=== PATIENT | male | born 1950 | race Caucasian/White ===

== ENCOUNTER 2018-08-20 11:39 | Day surgery (SDC) | payer BC ==
[~2018-08-20] VITALS: Ht 182.9 cm; Wt 112.3 kg
[~2018-08-20 11:39] MED LIST: CEPH500; CHLO500 PO; ELIQUIS5 MG PO; ERGO50000 PO; HYDACE5 PO; HYDMOR2 PO; HYDROCODONE 7.5/325 PO; INDO25 PO; METF500 PO; NAPR500EC PO; NAPR500ERA PO; NEBI10 PO; Naprosyn500 MG PO; Norco 5-325 Ta1 EACH PO; OMEP20ER PO; OXYACE5T PO; OXYC5 PO; Omeprazole20 M1 PO; PRAV20 PO; RXHYDMOR2 PO; RXLORA1 PO; TAMS.4ER PO; VIT1CAPS12; VIT1CAPS12 PO
== END 2018-08-20 12:50 | disposition home or self-care (01) ==
LOC: ORSCSDS 11:39
PROVIDERS: Anesthesiology
PROC: 3E0R33Z Introduction of Anti-inflammatory into Spinal Canal, Percutaneous Approach (ICD-10-PCS; principal; 2018-08-20 13:00)
DX: M54.16 Radiculopathy, lumbar region (principal); I48.91 Unspecified atrial fibrillation; I10 Essential (primary) hypertension; K21.9 Gastro-esophageal reflux disease without esophagitis; E78.00 Pure hypercholesterolemia, unspecified; Z79.01 Long term (current) use of anticoagulants; Z79.899 Other long term (current) drug therapy
CPT/HCPCS: J1040

== ENCOUNTER 2019-04-28 09:40 | Day surgery (SDC) | payer BC ==
[~2019-04-28] VITALS: Ht 182.9 cm; Wt 108.2 kg
[~2019-04-28 09:40] MED LIST changes: +CEPH500 PO; +FURO20 PO; +VIT1CAPS12 BOTHEYES
[2019-04-28] MEDS ORDERED: METO25ER PO (10:21)
--- NOTE | 2019-04-28 10:26 | NUR ---
PT ARRIVED TO RECOVERY ROOM IN RECLINER. RIGHT RAIDAL TR BAND SITE WITH WRIST BOARD STABLE WITH NO HEMATOMA AND NO BLEEDING. PT SITTING UP DRINKING DR PEPPER AND EATING CRACKERS. PT'S IN ROOM AND CALL LIGHT IN REACH.
--- NOTE | 2019-04-28 10:29 | NUR ---
DR. ADAME IN ROOM TO SEE PT AND PT'S .
[2019-04-28] MEDS ORDERED: NITR.4SL SL (11:54)
--- NOTE | 2019-04-28 13:51 | NUR ---
11 CC OF AIR REMOVED FROM NOW DEFLATED RIGHT TR BAND OVER 15 MIN. NO HEMATOMA, NO PUSLATILE BLEEDING. DISCHARGE INSTRUCTIONS REVIEWED ALL QUESTIONS ANSWERED.
--- NOTE | 2019-04-28 14:34 | NUR ---
RIGHT RADIAL TR BAND REMOVED AND POLYMEM PLACED OVER RIGHT RADIAL SITE WITH WRIST BOARD IN PLACE; NO HEMATOMA, NO PULSATILE BLEEDING. PT AMBULATED TO BR TO VOID. 20 G IV REMOVED FROM LEFT AC WITH INTACT CANNULA. PT ESCORTED OUT VIA WHEELCHAIR ESCORT.
== END 2019-04-28 14:40 | disposition home or self-care (01) ==
LOC: MHTC 09:40
DX: I25.119 Atherosclerotic heart disease of native coronary artery with unspecified angina pectoris (principal); I10 Essential (primary) hypertension; I48.2 Chronic atrial fibrillation; E78.5 Hyperlipidemia, unspecified; I95.1 Orthostatic hypotension; Z88.6 Allergy status to analgesic agent
CPT/HCPCS: 93454; 99152; C1769; C1894; J1644; J2250; J3010; J7030; Q9967

== ENCOUNTER 2019-12-07 19:17 | Emergency (ER) | payer BC ==
[~2019-12-07] VITALS: Ht 172.7 cm; Wt 81.7 kg
[~2019-12-07 19:17] MED LIST changes: +METO25ER PO; +NITR.4SL SL
[2019-12-07] MEDS ORDERED: Paxil20 MG PO (19:26)
[2019-12-07] MEDS ORDERED: GABA300 PO (19:26)
[2019-12-07] MEDS ORDERED: ATOR80 PO (19:26)
[2019-12-07 19:44] LABS: BASOPHILS PERCENT AUTO 1 % (0-2); EOSINOPHILS ABSOLUTE AUTO 0.23 K/mm3 (0.00-0.68); EOSINOPHILS PERCENT AUTO 3 % (0-6); Hematocrit 37.2 % (37.0-53.0); Hemoglobin 12.8 g/dL (13.5-17.5); IMMATURE GRAN ABSOLUTE AUTO 0.02 K/mm3 (0.00-0.10); IMMATURE GRAN PERCENT AUTO 0 % (0-1); LYMPHOCYTES ABSOLUTE AUTO 3.01 K/mm3 (0.84-5.20); LYMPHOCYTES PERCENT AUTO 37 % (21-46); MONOCYTES PERCENT AUTO 10 % (4-13); Mean Corpuscular HGB 31.8 pg (26.0-34.0); Mean Corpuscular HGB Conc 34.4 g/dL (31.5-36.5); Mean Corpuscular Volume 92 fL (80-100); Mean Platelet Volume 10.1 fL (9.1-12.4); NEUTROPHILS ABSOLUTE AUTO 4.06 K/mm3 (1.96-9.15); NEUTROPHILS PERCENT AUTO 50 % (41-73); Platelet Count 217 K/mm3 (150-400); RDW Coefficient Variation 13.6 % (11.7-14.2); RDW Standard Deviation 46.1 fL (35.1-46.3); Red Blood Cell Count 4.03 M/mm3 (4.30-5.90); White Blood Cell Count 8.22 K/mm3 (4.00-11.30)
[2019-12-07 20:07] LABS: Alanine Aminotransfer (ALT/SGP 29 U/L (12-78); Albumin, Blood 3.7 g/dL (3.4-5.0); Albumin/Globulin Ratio 1.4 (0.8-1.8); Alk Phos 87 U/L (50-136); Anion Gap 9 mmol/L (6-16); Aspartate Aminotrans (AST/SGOT 16 U/L (12-37); Bilirubin, Total 0.5 mg/dL (0.1-1.0); Blood Urea Nitrogen 10 mg/dL (8-24); Bun/Creatinine Ratio 10.7 (12.0-20.0); CO2, Blood 23 mmol/L (21-32); Calcium, Blood 8.4 mg/dL (8.5-10.1); Chloride, Blood 109 mmol/L (98-108); Creatinine, Blood 0.94 mg/dL (0.60-1.20); Globulin, Blood 2.7 g/dL (2.2-4.0); Glomerular Filtration Rate >60 (60-); Glucose, Blood 92 mg/dL (70-99); Potassium, Blood 3.5 mmol/L (3.5-5.5); Sodium, Blood 141 mmol/L (136-145); Total Protein, Blood 6.4 g/dL (6.4-8.2); Troponin I <0.015 ng/mL (0.000-0.040)
== END 2019-12-07 22:35 | disposition home or self-care (01) ==
LOC: ER 19:17
PROVIDERS: Emergency Medicine
DX: R55 Syncope and collapse (principal); M25.561 Pain in right knee; M25.562 Pain in left knee; G89.29 Other chronic pain; I48.91 Unspecified atrial fibrillation; E78.5 Hyperlipidemia, unspecified; I48.20 Chronic atrial fibrillation, unspecified; E11.9 Type 2 diabetes mellitus without complications; I25.10 Atherosclerotic heart disease of native coronary artery without angina pectoris; Z88.8 Allergy status to other drugs, medicaments and biological substances; Z79.899 Other long term (current) drug therapy; Z79.01 Long term (current) use of anticoagulants
CPT/HCPCS: 70450; 71045; 80053; 83880; 84484; 85025; 93005; 93010; 99285-25

== ENCOUNTER 2020-02-21 19:39 | Emergency (ER) | payer OTHER, BC ==
[~2020-02-21] VITALS: Ht 172.7 cm; Wt 83.9 kg
[~2020-02-21 19:39] MED LIST changes: +ATOR80 PO; +GABA300 PO; +Paxil20 MG PO
[2020-02-21 19:53] LABS: BASOPHILS ABSOLUTE AUTO 0.09 K/mm3 (0.00-0.23); BASOPHILS PERCENT AUTO 1 % (0-2); EOSINOPHILS ABSOLUTE AUTO 0.11 K/mm3 (0.00-0.68); EOSINOPHILS PERCENT AUTO 2 % (0-6); Hematocrit 39.8 % (37.0-53.0); Hemoglobin 13.4 g/dL (13.5-17.5); IMMATURE GRAN ABSOLUTE AUTO 0.02 K/mm3 (0.00-0.10); IMMATURE GRAN PERCENT AUTO 0 % (0-1); LYMPHOCYTES PERCENT AUTO 39 % (21-46); MONOCYTES ABSOLUTE AUTO 0.69 K/mm3 (0.16-1.47); MONOCYTES PERCENT AUTO 10 % (4-13); Mean Corpuscular HGB 31.8 pg (26.0-34.0); Mean Corpuscular HGB Conc 33.7 g/dL (31.5-36.5); Mean Corpuscular Volume 95 fL (80-100); Mean Platelet Volume 10.2 fL (9.1-12.4); NEUTROPHILS PERCENT AUTO 48 % (41-73); Platelet Count 225 K/mm3 (150-400); RDW Coefficient Variation 13.5 % (11.7-14.2); RDW Standard Deviation 47.4 fL (35.1-46.3); Red Blood Cell Count 4.21 M/mm3 (4.30-5.90); White Blood Cell Count 6.91 K/mm3 (4.00-11.30)
[2020-02-21 20:21] LABS: Alanine Aminotransfer (ALT/SGP 30 U/L (12-78); Albumin, Blood 3.7 g/dL (3.4-5.0); Albumin/Globulin Ratio 1.3 (0.8-1.8); Alk Phos 86 U/L (50-136); Anion Gap 12 mmol/L (6-16); Aspartate Aminotrans (AST/SGOT 20 U/L (12-37); Bilirubin, Total 0.4 mg/dL (0.1-1.0); Blood Urea Nitrogen 13 mg/dL (8-24); Bun/Creatinine Ratio 13.8 (12.0-20.0); CO2, Blood 19 mmol/L (21-32); Calcium, Blood 8.7 mg/dL (8.5-10.1); Chloride, Blood 112 mmol/L (98-108); Creatinine, Blood 0.94 mg/dL (0.60-1.20); Globulin, Blood 2.9 g/dL (2.2-4.0); Glomerular Filtration Rate >60 (60-); Glucose, Blood 102 mg/dL (70-99); Magnesium, Blood 2.1 mg/dL (1.6-2.4); Potassium, Blood 4.1 mmol/L (3.5-5.5); Sodium, Blood 143 mmol/L (136-145); Total Protein, Blood 6.6 g/dL (6.4-8.2); Troponin I <0.015 ng/mL (0.000-0.040)
[2020-03-13] MEDS ORDERED: CODACE30 PO (22:16)
[2020-03-14] MEDS ORDERED: ATOR20 PO (15:54)
== END 2020-02-21 21:19 | disposition home or self-care (01) ==
LOC: ER 19:39
PROVIDERS: Emergency Medicine
DX: R55 Syncope and collapse (principal); I48.91 Unspecified atrial fibrillation; E86.0 Dehydration; Z88.8 Allergy status to other drugs, medicaments and biological substances; Z79.899 Other long term (current) drug therapy; M81.0 Age-related osteoporosis without current pathological fracture; M54.9 Dorsalgia, unspecified; G89.29 Other chronic pain; E78.5 Hyperlipidemia, unspecified
CPT/HCPCS: 71045; 80053; 83735; 83880; 84484; 85025; 93005; 93010; 99284-25

== ENCOUNTER 2020-06-28 18:29 | Emergency (ER) | payer BC ==
[~2020-06-28] VITALS: Ht 182.9 cm; Wt 112.5 kg
[~2020-06-28 18:29] MED LIST changes: +ATOR20 PO; +CODACE30 PO
== END 2020-06-28 19:36 | disposition left against medical advice (07) ==
LOC: ER 18:29
DX: Z53.21 Procedure and treatment not carried out due to patient leaving prior to being seen by health care provider (principal)
CPT/HCPCS: 36415; 93005; 93010

== ENCOUNTER 2021-11-07 18:42 | Emergency (ER) | payer OTHER, BC ==
[~2021-11-07] VITALS: Ht 182.9 cm; Wt 90.7 kg
[2021-11-07] MEDS ORDERED: Flomax0.4 MG PO (18:59)
[2021-11-07] MEDS ORDERED: DONEPEZIL HCL5 M2 PO (18:59)
[2021-11-07] MEDS ORDERED: SILVADENE20 GM TOP (19:12)
== END 2021-11-07 19:50 | disposition home or self-care (01) ==
LOC: ER 18:42
DX: T22.011A Burn of unspecified degree of right forearm, initial encounter (principal); I48.91 Unspecified atrial fibrillation; E78.5 Hyperlipidemia, unspecified; Z79.899 Other long term (current) drug therapy; X08.8XXA Exposure to other specified smoke, fire and flames, initial encounter
CPT/HCPCS: 16020; 99284-25; A9270

== ENCOUNTER → 2023-01-04 | Outpatient (CLI) | payer OTHER ==
[~2023-01-04] MED LIST changes: +DONEPEZIL HCL5 M2 PO; +Flomax0.4 MG PO; +SILVADENE20 GM TOP
[2023-01-04 15:28] LABS: PSA, %Free 6.2 %; PSA, Free 0.487 ng/mL
== END | disposition home or self-care (01) ==
LOC: LAB 13:14 → LAB SHORT 13:14
PROVIDERS: Urology
DX: R97.20 Elevated prostate specific antigen [PSA] (principal)
CPT/HCPCS: 36415; 84153; 84154

== ENCOUNTER 2023-07-22 11:59 | Inpatient (IN) | payer OTHER, MEDICARE, BC ==
[~2023-07-22] VITALS: Ht 182.9 cm; Wt 193.5 kg
[2023-07-22 13:30] LABS: BASOPHILS ABSOLUTE AUTO 0.04 K/mm3 (0.00-0.23); BASOPHILS PERCENT AUTO 0 % (0-2); EOSINOPHILS PERCENT AUTO 0 % (0-6); Hematocrit 36.9 % (37.0-53.0); Hemoglobin 12.8 g/dL (13.5-17.5); IMMATURE GRAN ABSOLUTE AUTO 0.16 K/mm3 (0.00-0.10); IMMATURE GRAN PERCENT AUTO 1 % (0-1); LYMPHOCYTES ABSOLUTE AUTO 0.79 K/mm3 (0.84-5.20); LYMPHOCYTES PERCENT AUTO 5 % (21-46); MONOCYTES ABSOLUTE AUTO 1.36 K/mm3 (0.16-1.47); MONOCYTES PERCENT AUTO 8 % (4-13); Mean Corpuscular HGB 32.9 pg (26.0-34.0); Mean Corpuscular HGB Conc 34.7 g/dL (31.5-36.5); Mean Corpuscular Volume 95 fL (80-100); Mean Platelet Volume 9.9 fL (9.1-12.4); NEUTROPHILS ABSOLUTE AUTO 13.91 K/mm3 (1.96-9.15); NEUTROPHILS PERCENT AUTO 86 % (41-73); Platelet Count 193 K/mm3 (150-400); RDW Coefficient Variation 12.8 % (11.7-14.2); RDW Standard Deviation 45.3 fL (35.1-46.3); Red Blood Cell Count 3.89 M/mm3 (4.30-5.90); White Blood Cell Count 16.26 K/mm3 (4.00-11.30)
[2023-07-22 14:09] LABS: Albumin, Blood 2.6 g/dL (3.4-5.0); Albumin/Globulin Ratio 0.6 (0.8-1.8); Bilirubin, Total 1.9 mg/dL (0.1-1.0); Bun/Creatinine Ratio 13.3 (12.0-20.0); Calcium, Blood 8.6 mg/dL (8.5-10.1); Creatinine, Blood 1.05 mg/dL (0.60-1.20); Globulin, Blood 4.2 g/dL (2.2-4.0); Potassium, Blood 3.7 mmol/L (3.5-5.5); Total Protein, Blood 6.8 g/dL (6.4-8.2)
[2023-07-22 14:57] LABS: Influenza A, PCR NEGATIVE (NEGATIVE); Influenza B, PCR NEGATIVE (NEGATIVE); Resp Syncytial Virus, PCR NEGATIVE (NEGATIVE); SARS-Cov-2 (COVID-19) PCR, MMC NEGATIVE (NEGATIVE)
[2023-07-22 16:41] LABS: Source, Urine Clean Catch
[2023-07-22 16:46] LABS: Blood, Urine 4+ (Neg); Color, Urine Amber (P-Yellow); Glucose Qualitative, Urine Neg (Neg); Ketones, Urine 2+ (Neg); Leukocyte Esterase, Urine 1+ (Neg); Nitrite, Urine Pos (Neg); Protein, Urine 3+ (Neg); Urobilinogen, Urine 4+ (Normal)
[2023-07-22 16:59] LABS: Appearance, Urine Hazy (Clear); Bilirubin, Urine 2+ (Neg)
[2023-07-22 17:01] LABS: Amorphous Light (0-Heavy); Bacteria Many /hpf; Mucus Mod (0-Heavy); Squamous Epithelial Cells Few /hpf (Few)
[2023-07-22 17:03] LABS: Granular Casts 0-2 /lpf (0)
[2023-07-22 19:41] VITALS: BP 147/98
[2023-07-23 02:27] VITALS: BP 168/100
[2023-07-23 04:52] LABS: BASOPHILS ABSOLUTE AUTO 0.03 K/mm3 (0.00-0.23); BASOPHILS PERCENT AUTO 0 % (0-2); EOSINOPHILS PERCENT AUTO 0 % (0-6); Hematocrit 35.8 % (37.0-53.0); Hemoglobin 12.4 g/dL (13.5-17.5); IMMATURE GRAN ABSOLUTE AUTO 0.16 K/mm3 (0.00-0.10); IMMATURE GRAN PERCENT AUTO 1 % (0-1); LYMPHOCYTES ABSOLUTE AUTO 1.06 K/mm3 (0.84-5.20); LYMPHOCYTES PERCENT AUTO 7 % (21-46); MONOCYTES ABSOLUTE AUTO 1.38 K/mm3 (0.16-1.47); MONOCYTES PERCENT AUTO 9 % (4-13); Mean Corpuscular HGB Conc 34.6 g/dL (31.5-36.5); Mean Corpuscular Volume 93 fL (80-100); Mean Platelet Volume 10.1 fL (9.1-12.4); NEUTROPHILS ABSOLUTE AUTO 12.76 K/mm3 (1.96-9.15); NEUTROPHILS PERCENT AUTO 83 % (41-73); Platelet Count 216 K/mm3 (150-400); RDW Coefficient Variation 12.8 % (11.7-14.2); RDW Standard Deviation 43.4 fL (35.1-46.3); Red Blood Cell Count 3.87 M/mm3 (4.30-5.90); White Blood Cell Count 15.39 K/mm3 (4.00-11.30)
[2023-07-23 05:11] LABS: Albumin, Blood 2.4 g/dL (3.4-5.0); Albumin/Globulin Ratio 0.6 (0.8-1.8); Bilirubin, Total 1.4 mg/dL (0.1-1.0); Bun/Creatinine Ratio 20.4 (12.0-20.0); Calcium, Blood 8.2 mg/dL (8.5-10.1); Creatinine, Blood 0.88 mg/dL (0.60-1.20); Globulin, Blood 4.2 g/dL (2.2-4.0); Potassium, Blood 3.5 mmol/L (3.5-5.5); Total Protein, Blood 6.6 g/dL (6.4-8.2)
--- NOTE | 2023-07-23 05:12 | NUR ---
REPORT RECEIVED FROM ER, VERIFIED PT A/O X3 VERY PLEASENT, AT BEDSIDE. PT TREMULOUS WITH A FEVER AND A LITTLE TACHY, NO C/O DISTRESS NO C/O PAIN ADMISSION DONE. NEW IV START TO LEFT FA, IV FLUIDS STARTED, PT URINE COLOR IS TEA AND MINIMAL OUTPUT. VSS , PT CALLED APPROPRIATELY THROUGH THE NIGHT AND IS CLAIMING TO FEEL BETTER. NO WORSENING MENTAL STATE. WILL CONT TO MONITOR .
[2023-07-23 08:16] VITALS: BP 140/99
--- NOTE | 2023-07-23 14:10 | NUR ---
Patient is lying in bed and alert. Patient's spouse is bedside. They explain about the events that led to his hospitalization and the fears they had about him having COVID. Patient talks about his active life and how it feels like torture to be immobile and stuck inside. His hobbies and career are all outdoors centered. He talks about the solid support of family and friends and the peace and strength that he gathers from his [employer] elena. I normalize his feelings and fears, reinforce helpful attitudes and practirces and provide therapeutic listening and prayer. Patient responded well and showed signs of increased peace. I will continue to remain available to patient and family.
[2023-07-23 15:51] VITALS: BP 125/89
[2023-07-23 19:19] VITALS: BP 137/84
[2023-07-24 05:05] VITALS: BP 131/95
[2023-07-24 05:16] LABS: BASOPHILS ABSOLUTE AUTO 0.05 K/mm3 (0.00-0.23); BASOPHILS PERCENT AUTO 1 % (0-2); EOSINOPHILS ABSOLUTE AUTO 0.17 K/mm3 (0.00-0.68); EOSINOPHILS PERCENT AUTO 2 % (0-6); Hematocrit 34.5 % (37.0-53.0); IMMATURE GRAN PERCENT AUTO 1 % (0-1); LYMPHOCYTES ABSOLUTE AUTO 1.31 K/mm3 (0.84-5.20); LYMPHOCYTES PERCENT AUTO 13 % (21-46); MONOCYTES ABSOLUTE AUTO 1.05 K/mm3 (0.16-1.47); MONOCYTES PERCENT AUTO 10 % (4-13); Mean Corpuscular HGB 32.4 pg (26.0-34.0); Mean Corpuscular HGB Conc 34.8 g/dL (31.5-36.5); Mean Corpuscular Volume 93 fL (80-100); Mean Platelet Volume 10.5 fL (9.1-12.4); NEUTROPHILS PERCENT AUTO 74 % (41-73); Platelet Count 216 K/mm3 (150-400); RDW Coefficient Variation 12.8 % (11.7-14.2); RDW Standard Deviation 43.8 fL (35.1-46.3); White Blood Cell Count 10.38 K/mm3 (4.00-11.30)
[2023-07-24 05:33] LABS: Bun/Creatinine Ratio 24.4 (12.0-20.0); Calcium, Blood 7.8 mg/dL (8.5-10.1); Creatinine, Blood 0.82 mg/dL (0.60-1.20); Potassium, Blood 3.7 mmol/L (3.5-5.5)
--- NOTE | 2023-07-24 05:46 | NUR ---
REPORT RECEIVED VERIFIED, PT GIVEN MEDICATION FOR EVENING AND ALLOWED TO SLEEP. PT SLEPT THROUGHOUT THE NIGHT DID VERY WELL, NO DISTRESS NO C/O PAIN, STATES HE FEELS VERY GOOD.
[2023-07-24 07:49] VITALS: BP 137/94
[2023-07-24 14:59] VITALS: BP 156/106
[2023-07-24 16:01] VITALS: BP 144/97
--- NOTE | 2023-07-24 17:02 | NUR ---
SHIFT SUMMARY PATIENT ALERT AND INTERACTIVE. PATIENT ABLE TO MAKE NEEDS KNOWN. PATIENT WORKED WITH THERAPY AND AMBULATED WITH WALKER TO FOR SHOWER AND WAS ABLE TO PERFORM SHOWER WITH SUPERVISION. PATIENT HAD AN EPISODE OF CHEST PAIN THIS AFTERNOON. PATIENT HYPERTENSIVE AND HAVING MIDSTERNAL, R APICAL CHEST PAIN THAT DOES NOT CHANGE WITH RESPIRATIONS. STATES PATIENT WAS PERSCRIBED NITRO AT ONE POINT FROM CARDIOLOGY BUT HAS NOT USED IT. PATIENT STATES THAT IT HAS BEEN COMING AND GOING ALL DAY. EKG DONE, DR HOGAN NOTIFIED, ORDERS OBTAINED FOR SL NITRO. SL NITRO GIVEN AND CHEST PAIN RELIEVED WITHIN 5 MINUTES. PROVIDED EDUCATION RELATED TO CHEST PAIN AND THE IMPORTANCE OF NOTIFYING NURSE WHEN CHEST PAIN STARTS. PATIENT HAD NO FURTHER CHEST PAIN. PATIENT EXPRESSED THAT HE DOES NOT WANT TO GO TO REHAB. ENCOURAGED MOBILIZING MUCH POSSIBLE WHILE IN THE HOSPITAL.
[2023-07-24 19:39] VITALS: BP 131/101
[2023-07-24 21:19] VITALS: BP 142/102
--- NOTE | 2023-07-24 21:49 | NUR ---
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 LUNGS ARE DIMINISHED MID LUNG BILAT AND BASES NO CRACKLES OR WHEEZES PT REPORTS SOB WHEN LAYING FLAT. IV SALINE LOCKED. PT REPORTS MINOR SWELLING TO LE TRACE AMOUNT ENCOURAGED TO ELEVATE LEGS. BOWEL SOUNDS ACTIVE IN ALL QUADS PT STATES BM THIS MORNING. CALL LIGHT WITHIN REACH, BED LOWERED, WILL CONTINUE TO MONITOR. BP REMAINS HYPERTENSIVE 142/102 PT MEDICATED PER EMAR WILL REASSESS.
[2023-07-25 02:56] VITALS: BP 137/96
[2023-07-25 04:59] LABS: BASOPHILS ABSOLUTE AUTO 0.06 K/mm3 (0.00-0.23); BASOPHILS PERCENT AUTO 1 % (0-2); EOSINOPHILS ABSOLUTE AUTO 0.27 K/mm3 (0.00-0.68); EOSINOPHILS PERCENT AUTO 3 % (0-6); Hematocrit 36.8 % (37.0-53.0); Hemoglobin 12.8 g/dL (13.5-17.5); IMMATURE GRAN ABSOLUTE AUTO 0.15 K/mm3 (0.00-0.10); IMMATURE GRAN PERCENT AUTO 1 % (0-1); LYMPHOCYTES ABSOLUTE AUTO 1.31 K/mm3 (0.84-5.20); LYMPHOCYTES PERCENT AUTO 12 % (21-46); MONOCYTES ABSOLUTE AUTO 0.98 K/mm3 (0.16-1.47); MONOCYTES PERCENT AUTO 9 % (4-13); Mean Corpuscular HGB 32.6 pg (26.0-34.0); Mean Corpuscular HGB Conc 34.8 g/dL (31.5-36.5); Mean Corpuscular Volume 94 fL (80-100); Mean Platelet Volume 10.4 fL (9.1-12.4); NEUTROPHILS PERCENT AUTO 75 % (41-73); Platelet Count 272 K/mm3 (150-400); RDW Coefficient Variation 12.8 % (11.7-14.2); Red Blood Cell Count 3.93 M/mm3 (4.30-5.90); White Blood Cell Count 10.97 K/mm3 (4.00-11.30)
--- NOTE | 2023-07-25 05:14 | NUR ---
SHIFT SUMMARY NOC PT A/O X 4. PLEASANT AND COOPERATIVE WITH CARE. PT HAD C/O OF UPPER GI DISCOMFORT, ORDER FOR GI COCKTAIL OBTAINED AND NO FURTHER C/O OF UPPER GI DISCOMFORT REPORTED. PT ON TELE RUNNING AFIB IN 90'-100'S. PT HAD SOME ELEVATED DYSTOLIC BP IN LOW 100'S, DURING SHIFT, WILL CONTINUE TO MONITOR PT FOR CHANGE IN CONDITION. SPUTUM SAMPLE REMAINS UNCOLLECTED.PT SPIKED TEMP 100.6F TYLENOL GIVEN TEMP 98.5F.PT EXPECTED TO DISCHARGE HOME TODAY. PT IS CURRENTLY RESTING WITH BED IN LOWEST POSITION, AND CALL LIGHT WITHIN REACH.
[2023-07-25 05:31] LABS: Bun/Creatinine Ratio 25.9 (12.0-20.0); Calcium, Blood 8.3 mg/dL (8.5-10.1); Creatinine, Blood 0.77 mg/dL (0.60-1.20); Potassium, Blood 3.7 mmol/L (3.5-5.5)
[2023-07-25 07:26] VITALS: BP 137/105
[2023-07-25 15:05] VITALS: BP 114/90
[2023-07-25 19:30] VITALS: BP 133/91
--- NOTE | 2023-07-26 00:50 | NUR ---
PT A&OX4 REPORTS IMPROVEMENT WITH MOBILITY AND RESPIRATORY FUNCTION. LUNGS ARE DIMINISHED AT BASES AND ON RIGHT NO WHEEZES OR CRACKLES PT DENIES SOB, PT ON TELE AFIB 102 DENIES CHEST PAIN, PT REPORTS BM THIS MORNING BOWEL SOUNDS ACTIVE IN ALL QUADS PT REPORTS PASSING GAS, PT HAS INCREASED APPETITE AND WAS EDUCATED ON GERD AND EATING HABITS TO AVOID REFLUX, PT CALL FRANZ WITHIN REACH BED LOWERED WILL CONTINUE TO MONITOR. PT RESTING WELL PT HAS AUDIBLE SNORE NON OBSTRUCTED DISCUSS SLEEP STUDY WITH ONCOMING NURSE.
[2023-07-26 03:32] VITALS: BP 132/89
[2023-07-26 07:27] LABS: BASOPHILS ABSOLUTE AUTO 0.09 K/mm3 (0.00-0.23); BASOPHILS PERCENT AUTO 1 % (0-2); EOSINOPHILS ABSOLUTE AUTO 0.19 K/mm3 (0.00-0.68); EOSINOPHILS PERCENT AUTO 2 % (0-6); Hematocrit 37.2 % (37.0-53.0); Hemoglobin 13.1 g/dL (13.5-17.5); IMMATURE GRAN ABSOLUTE AUTO 0.22 K/mm3 (0.00-0.10); IMMATURE GRAN PERCENT AUTO 2 % (0-1); LYMPHOCYTES ABSOLUTE AUTO 1.48 K/mm3 (0.84-5.20); LYMPHOCYTES PERCENT AUTO 12 % (21-46); MONOCYTES ABSOLUTE AUTO 1.11 K/mm3 (0.16-1.47); MONOCYTES PERCENT AUTO 9 % (4-13); Mean Corpuscular HGB 33.3 pg (26.0-34.0); Mean Corpuscular HGB Conc 35.2 g/dL (31.5-36.5); Mean Corpuscular Volume 95 fL (80-100); Mean Platelet Volume 9.8 fL (9.1-12.4); NEUTROPHILS ABSOLUTE AUTO 9.36 K/mm3 (1.96-9.15); NEUTROPHILS PERCENT AUTO 75 % (41-73); Platelet Count 349 K/mm3 (150-400); RDW Coefficient Variation 13.2 % (11.7-14.2); RDW Standard Deviation 46.1 fL (35.1-46.3); Red Blood Cell Count 3.93 M/mm3 (4.30-5.90); White Blood Cell Count 12.45 K/mm3 (4.00-11.30)
[2023-07-26 07:35] VITALS: BP 126/92
[2023-07-26] MEDS ORDERED: ELIQUIS5 M2 PO (13:17)
[2023-07-26] MEDS ORDERED: AMOCLA875 PO (13:18)
[2023-07-26] MEDS ORDERED: ATOR40TA PO (13:18)
[2023-07-26] MEDS ORDERED: GABA600 PO (13:19)
[2023-07-26] MEDS ORDERED: MEMA5TAB PO (13:20)
[2023-07-26] MEDS ORDERED: Sanctura20 MG PO (13:20)
[2023-07-26 13:51] LABS: Bun/Creatinine Ratio 16.9 (12.0-20.0); Calcium, Blood 8.3 mg/dL (8.5-10.1); Creatinine, Blood 0.83 mg/dL (0.60-1.20); Potassium, Blood 4.6 mmol/L (3.5-5.5)
[2023-07-26 15:10] VITALS: BP 119/88
[2023-07-26] MEDS ORDERED: MITIGARE0.6 MG PO (17:43)
--- NOTE | 2023-07-26 19:38 | NUR ---
SHIFT SUMMARY AND DISCHARGE PATIENT DISCHARGED TO HOME. DISCHARGE DELAYED BECAUSE OF NEW ONSET OF FEET PAIN. PATIENT HAD HX OF GOUT. PATIENT FEELING READY TO GO HOME. WORKED WITH THERAPY. PATIENT HAD PAIN/TENDERNESS WITH APPLYING SOCKS AND SHOES. PATIENT ABLE TO PERFORM ADLS REQUESTED BY THERAPY BUT EXHAUSTED AFTER AND NEEDING TO BE WHEELED BACK TO ROOM. PATIENT UNABLE TO STAND AFTER BECAUSE OF PAIN. DR HOGAN NOTIFIED. DISCHARGE PAUSED AND PATIENT STARTED ON MEDICATION FOR GOUT. PATIENT DISCHARGED LATER AFTER PAIN CONTROLLED WITH LOADING DOSE. NE RX CALLED TO [facility]. DISCHARGE INSTRUCTIONS REVIEWED WITH AND FAMILY. HOME HEALTH TO FOLLOW UP WITH PATIENT. ROOM CHECK DONE PRIOR TO PATIENT DISCHARGE.
== END 2023-07-26 18:17 | disposition home health service (06) | DRG 871 ==
LOC: ER 11:59 → MEDS 12:00 → ENPENDDIS 07-26 10:17 → MEDS 07-26 18:17
PROVIDERS: Emergency Medicine; ADMIT Internal Medicine
PROC: 3E03329 Introduction of Other Anti-infective into Peripheral Vein, Percutaneous Approach (ICD-10-PCS; principal; 2023-07-23)
PROC: HZ2ZZZZ Detoxification Services for Substance Abuse Treatment (ICD-10-PCS; 2023-07-23)
DX: A41.9 Sepsis, unspecified organism (principal); J18.9 Pneumonia, unspecified organism; N39.0 Urinary tract infection, site not specified; I48.91 Unspecified atrial fibrillation; K22.70 Barrett's esophagus without dysplasia; M81.0 Age-related osteoporosis without current pathological fracture; G89.29 Other chronic pain; Z66 Do not resuscitate; M54.9 Dorsalgia, unspecified; N40.0 Benign prostatic hyperplasia without lower urinary tract symptoms; E78.5 Hyperlipidemia, unspecified; G47.00 Insomnia, unspecified; F10.90 Alcohol use, unspecified, uncomplicated; F41.9 Anxiety disorder, unspecified; F32.A Depression, unspecified; E88.810 Metabolic syndrome; Z96.653 Presence of artificial knee joint, bilateral; Z88.1 Allergy status to other antibiotic agents; Z79.899 Other long term (current) drug therapy; Z79.01 Long term (current) use of anticoagulants; Z90.49 Acquired absence of other specified parts of digestive tract; Z98.890 Other specified postprocedural states; Z90.89 Acquired absence of other organs; Z11.52 Encounter for screening for COVID-19
CPT/HCPCS: 0241U; 36415; 71046; 80048; 80053; 81001; 83605; 83880; 84145; 84484; 85025; 87040; 87086; 93005; 93010; 96361; 96365; 96366; 96367; 97116; 97162; 97165; 97530; 97535; 99285-25; A9270; G0378; J0456; J0696; J3411; J7030; J7040; J7050

== ENCOUNTER 2025-03-10 16:14 | Emergency (ER) | payer BC, OTHER ==
[~2025-03-10] VITALS: Ht 188 cm; Wt 104.3 kg
[~2025-03-10 16:14] MED LIST changes: +AMOCLA875 PO; +ATOR40TA PO; +ELIQUIS5 M2 PO; +GABA600 PO; +MEMA5TAB PO; +MITIGARE0.6 MG PO; +Sanctura20 MG PO
[2025-03-10 17:00] LABS: BASOPHILS ABSOLUTE AUTO 0.06 K/mm3 (0.00-0.23); BASOPHILS PERCENT AUTO 1 % (0-2); EOSINOPHILS ABSOLUTE AUTO 0.14 K/mm3 (0.00-0.68); EOSINOPHILS PERCENT AUTO 2 % (0-6); Hematocrit 35.4 % (37.0-53.0); Hemoglobin 12.1 g/dL (13.5-17.5); IMMATURE GRAN ABSOLUTE AUTO 0.03 K/mm3 (0.00-0.10); IMMATURE GRAN PERCENT AUTO 0 % (0-1); LYMPHOCYTES ABSOLUTE AUTO 0.69 K/mm3 (0.84-5.20); LYMPHOCYTES PERCENT AUTO 10 % (21-46); MONOCYTES ABSOLUTE AUTO 0.74 K/mm3 (0.16-1.47); MONOCYTES PERCENT AUTO 11 % (4-13); Mean Corpuscular HGB Conc 34.2 g/dL (31.5-36.5); Mean Corpuscular Volume 97 fL (80-100); NEUTROPHILS ABSOLUTE AUTO 5.33 K/mm3 (1.96-9.15); NEUTROPHILS PERCENT AUTO 76 % (41-73); NRBC ABSOLUTE 0.00 K/mm3 (0.00-0.02); NRBC Auto 0.0 /100 WBC (0.0-0.2); Platelet Count 213 K/mm3 (150-400); RDW Coefficient Variation 13.6 % (11.7-14.2); RDW Standard Deviation 49.0 fL (35.1-46.3)
[2025-03-10 17:24] LABS: Alanine Aminotransfer (ALT/SGP 31.0 U/L (12-78); Albumin, Blood 3.6 g/dL (3.4-5.0); Albumin/Globulin Ratio 1.2 (0.8-1.8); Anion Gap 11.0 mmol/L (3-11); Aspartate Aminotrans (AST/SGOT 24.0 U/L (12-37); Bilirubin, Total 0.4 mg/dL (0.1-1.0); Blood Urea Nitrogen 20.0 mg/dL (8-24); CO2, Blood 21.0 mmol/L (21-32); Calcium, Blood 8.9 mg/dL (8.5-10.1); Chloride, Blood 108.0 mmol/L (98-108); Creatinine, Blood 1.11 mg/dL (0.60-1.20); Globulin, Blood 2.9 g/dL (2.2-4.0); Glucose, Blood 104.0 mg/dL (70-99); Potassium, Blood 3.6 mmol/L (3.5-5.5); Sodium, Blood 136.0 mmol/L (136-145); Total Protein, Blood 6.5 g/dL (6.4-8.2)
[2025-03-10 18:00] VITALS: BP 167/98
== END 2025-03-10 18:14 | disposition home or self-care (01) ==
LOC: ER 16:14
PROVIDERS: Emergency Medicine
DX: S00.91XA Abrasion of unspecified part of head, initial encounter (principal); I48.91 Unspecified atrial fibrillation; M81.0 Age-related osteoporosis without current pathological fracture; E78.5 Hyperlipidemia, unspecified; Z88.6 Allergy status to analgesic agent; Z79.01 Long term (current) use of anticoagulants; Z79.899 Other long term (current) drug therapy; W11.XXXA Fall on and from ladder, initial encounter
CPT/HCPCS: 70450; 72125; 80053; 85025; 93005; 93010; 99285-25

== ENCOUNTER 2025-04-14 22:17 | Emergency (ER) | payer OTHER ==
[~2025-04-14] VITALS: Ht 182.9 cm; Wt 104.3 kg
[2025-04-14 22:21] VITALS: BP 118/78
[2025-04-15 03:35] LABS: Source, Urine Clean Catch
[2025-04-15 03:41] LABS: Bilirubin, Urine Neg (Neg); Glucose Qualitative, Urine Neg (Neg); Ketones, Urine Neg (Neg); Leukocyte Esterase, Urine Neg (Neg); Protein, Urine Neg (Neg); Specific Gravity, Urine 1.005 (1.003-1.022); Urobilinogen, Urine NORM (Normal)
[2025-04-15 04:01] LABS: Color, Urine Pale Yellow (P-Yellow)
[2025-04-15 04:52] LABS: BASOPHILS ABSOLUTE AUTO 0.06 K/mm3 (0.00-0.23); BASOPHILS PERCENT AUTO 2 % (0-2); EOSINOPHILS ABSOLUTE AUTO 0.23 K/mm3 (0.00-0.68); EOSINOPHILS PERCENT AUTO 6 % (0-6); Hematocrit 34.0 % (37.0-53.0); Hemoglobin 11.8 g/dL (13.5-17.5); IMMATURE GRAN ABSOLUTE AUTO 0.00 K/mm3 (0.00-0.10); IMMATURE GRAN PERCENT AUTO 0 % (0-1); LYMPHOCYTES ABSOLUTE AUTO 0.94 K/mm3 (0.84-5.20); LYMPHOCYTES PERCENT AUTO 26 % (21-46); MONOCYTES ABSOLUTE AUTO 0.47 K/mm3 (0.16-1.47); MONOCYTES PERCENT AUTO 13 % (4-13); Mean Corpuscular HGB Conc 34.7 g/dL (31.5-36.5); Mean Corpuscular Volume 96 fL (80-100); NEUTROPHILS ABSOLUTE AUTO 1.91 K/mm3 (1.96-9.15); NEUTROPHILS PERCENT AUTO 53 % (41-73); NRBC ABSOLUTE 0.00 K/mm3 (0.00-0.02); NRBC Auto 0.0 /100 WBC (0.0-0.2); Platelet Count 166 K/mm3 (150-400); RDW Coefficient Variation 13.0 % (11.7-14.2); RDW Standard Deviation 45.8 fL (35.1-46.3)
[2025-04-15 05:18] LABS: Alanine Aminotransfer (ALT/SGP 31.0 U/L (12-78); Albumin, Blood 3.4 g/dL (3.4-5.0); Albumin/Globulin Ratio 1.4 (0.8-1.8); Anion Gap 11.0 mmol/L (3-11); Aspartate Aminotrans (AST/SGOT 23.0 U/L (12-37); Bilirubin, Total 0.4 mg/dL (0.1-1.0); Blood Urea Nitrogen 14.0 mg/dL (8-24); CO2, Blood 22.0 mmol/L (21-32); Calcium, Blood 7.4 mg/dL (8.5-10.1); Chloride, Blood 108.0 mmol/L (98-108); Creatinine, Blood 0.65 mg/dL (0.60-1.20); Globulin, Blood 2.4 g/dL (2.2-4.0); Glucose, Blood 78.0 mg/dL (70-99); Magnesium, Blood 1.7 mg/dL (1.6-2.4); Potassium, Blood 3.7 mmol/L (3.5-5.5); Sodium, Blood 137.0 mmol/L (136-145); Total Protein, Blood 5.8 g/dL (6.4-8.2)
== END 2025-04-15 05:43 | disposition home or self-care (01) ==
LOC: ER 22:17
PROVIDERS: Physician Assistant; Student in an Organized Health Care Education/Training Program
DX: R26.89 Other abnormalities of gait and mobility (principal); M25.561 Pain in right knee; M25.562 Pain in left knee; I48.91 Unspecified atrial fibrillation; M81.0 Age-related osteoporosis without current pathological fracture; E78.5 Hyperlipidemia, unspecified; Z86.73 Personal history of transient ischemic attack (TIA), and cerebral infarction without residual deficits; Z88.6 Allergy status to analgesic agent; Z79.01 Long term (current) use of anticoagulants; Z79.899 Other long term (current) drug therapy
CPT/HCPCS: 70450; 73562-LT; 73562-RT; 80053; 81003; 83735; 85025; 93005; 93010; 99285-25